=== PATIENT | female | born 1995 | race Two or more races ===

== ENCOUNTER 2021-05-29 03:05 | Emergency (ER) | payer OTHER ==
[~2021-05-29 03:05] MED LIST: IBUPROFEN800 MG PO; LODINE400 MG PO; PREDNISONE 20MG20 MG PO; PROAIR HFA8.5 GM INH; ROBAXIN750 MG PO; TESSALON PERLE100 M1 PO
[2021-05-29 04:56] LABS: BASOPHIL 0.5 % (0-2); EOSINOPHIL 1.6 % (0-5); HGB 12.2 g/dl (12.5-16.0); LYMPHOCYTE 26.2 % (15-48); MCH 27.4 pg (25.0-31.0); MCHC 32.1 g/dL (32.0-36.0); MCV 85.2 fL (78.0-100.0); MONOCYTE 6.3 % (0-12); MPV 11.1 fL (6.0-9.5); NEUTROPHIL 65.2 % (41-80); NRBC 0; PLT 258 K/uL (150-400); RBC 4.46 M/uL (4.20-5.40); RDW 14.8 % (11.5-14.0); WBC 10.5 K/uL (4.0-10.5)
[2021-05-29 05:10] LABS: BUN/CREAT RATIO (CALC) 12.3 RATIO; CREATININE 0.73 mg/dL (0.51-0.95); POTASSIUM 3.5 mmol/L (3.5-5.1)
[2021-05-29 05:24] LABS: BILIRUBIN NEGATIVE (NEGATIVE); BLOOD 2+ Ery/uL (NEGATIVE); CLARITY CLEAR (CLEAR); COLOR YELLOW (YELLOW); GLUCOSE (U) NORMAL (NORMAL); LEUKOCYTES NEGATIVE Leu/uL (NEGATIVE); NITRITE NEGATIVE (NEGATIVE); PROTEIN NEGATIVE (NEGATIVE); UROBILINOGEN 0.2 mg/dL (0.2-1.0)
[2021-05-29 05:28] LABS: BACTERIA TRACE; URINARY WBC RARE
== END 2021-05-29 07:42 | disposition home or self-care (01) ==
LOC: FER 03:05
PROVIDERS: Emergency Medicine Emergency Medical Services
DX: O20.0 Threatened abortion (principal); O99.330 Smoking (tobacco) complicating pregnancy, unspecified trimester; F17.210 Nicotine dependence, cigarettes, uncomplicated; Z3A.00 Weeks of gestation of pregnancy not specified; Z90.49 Acquired absence of other specified parts of digestive tract
CPT/HCPCS: 36415; 80048; 81001; 84702; 85025; 86900; 86901; 87210

== ENCOUNTER 2021-12-13 19:39 | Emergency (ER) | payer OTHER ==
[2021-12-13 21:17] LABS: BASOPHIL 0.4 % (0-2); EOSINOPHIL 0.4 % (0-5); HCT 32.7 % (37.0-47.0); LYMPHOCYTE 7.5 % (15-48); MCH 28.6 pg (25.0-31.0); MCHC 33.6 g/dL (32.0-36.0); MCV 85.2 fL (78.0-100.0); MONOCYTE 5.3 % (0-12); MPV 10.3 fL (6.0-9.5); NRBC 0; PLT 169 K/uL (150-400); RBC 3.84 M/uL (4.20-5.40); RDW 13.1 % (11.5-14.0); WBC 7.7 K/uL (4.0-10.5)
[2021-12-13 21:43] LABS: ALBUMIN 3.2 g/dL (3.4-5.0); BILIRUBIN - TOTAL 0.3 mg/dL (0.2-1.0); BUN/CREAT RATIO (CALC) 4.1 RATIO; CREATININE 0.49 mg/dL (0.51-0.95); FT4 (FREE T4) 0.8 ng/dL (0.76-1.46); GLOBULIN (CALCULATION) 4.1 g/dL; MAGNESIUM 1.4 mg/dL (1.8-2.4); POTASSIUM 3.1 mmol/L (3.5-5.1); TOTAL PROTEIN 7.3 g/dL (6.4-8.2)
[2021-12-13 22:06] LABS: CORONAVIRUS 2019 SARS-COV-2 NEGATIVE (NEGATIVE); INFLUENZA A NAA POSITIVE (NEGATIVE)
[2021-12-14] MEDS ORDERED: PREDNISONE 20MG20 MG PO (01:55)
[2021-12-14 02:37] LABS: BILIRUBIN NEGATIVE (NEGATIVE); BLOOD 2+ Ery/uL (NEGATIVE); GLUCOSE (U) NORMAL (NORMAL); LEUKOCYTES NEGATIVE Leu/uL (NEGATIVE); NITRITE NEGATIVE (NEGATIVE); PROTEIN NEGATIVE (NEGATIVE); SPECIFIC GRAVITY 1.015 (1.001-1.030)
[2021-12-14 02:42] LABS: CLARITY SLIGHTLY HAZY (CLEAR); COLOR STRAW (YELLOW)
[2021-12-14 02:44] LABS: BACTERIA TRACE; URINARY WBC RARE
== END 2021-12-14 02:32 | disposition home or self-care (01) ==
LOC: FER 19:39
PROVIDERS: Internal Medicine
DX: O99.513 Diseases of the respiratory system complicating pregnancy, third trimester (principal); J10.1 Influenza due to other identified influenza virus with other respiratory manifestations; J45.901 Unspecified asthma with (acute) exacerbation; O99.283 Endocrine, nutritional and metabolic diseases complicating pregnancy, third trimester; E87.6 Hypokalemia; O99.891 Other specified diseases and conditions complicating pregnancy; R00.0 Tachycardia, unspecified; R94.6 Abnormal results of thyroid function studies; Z87.891 Personal history of nicotine dependence; Z3A.34 34 weeks gestation of pregnancy; Z20.822 Contact with and (suspected) exposure to COVID-19
CPT/HCPCS: 36415; 71046; 80053; 81001; 83605; 83690; 83735; 84145; 84439; 84443; 85025; 87040; 94640; 94664; J1170; J2405; J2543; J3475; J7030; U0002

== ENCOUNTER 2022-01-21 14:07 | Day surgery (SDC) | payer OTHER ==
[2022-01-21 15:03] LABS: BASOPHIL 0.4 % (0-2); EOSINOPHIL 3.1 % (0-5); HCT 39.7 % (37.0-47.0); HGB 12.7 g/dl (12.5-16.0); LYMPHOCYTE 30.9 % (15-48); MCH 27.7 pg (25.0-31.0); MCV 86.5 fL (78.0-100.0); MONOCYTE 5.7 % (0-12); MPV 10.4 fL (6.0-9.5); NEUTROPHIL 59.6 % (41-80); NRBC 0; PLT 339 K/uL (150-400); RBC 4.59 M/uL (4.20-5.40); RDW 12.9 % (11.5-14.0); WBC 9.3 K/uL (4.0-10.5)
[2022-01-21 15:09] LABS: BILIRUBIN NEGATIVE (NEGATIVE); BLOOD 3+ Ery/uL (NEGATIVE); CLARITY CLEAR (CLEAR); COLOR YELLOW (YELLOW); GLUCOSE (U) NORMAL (NORMAL); LEUKOCYTES NEGATIVE Leu/uL (NEGATIVE); NITRITE NEGATIVE (NEGATIVE); PROTEIN NEGATIVE (NEGATIVE); UROBILINOGEN 0.2 mg/dL (0.2-1.0); pH 6.5 (5.0-9.0)
[2022-01-21 15:15] LABS: BUN/CREAT RATIO (CALC) 15.3 RATIO; CREATININE 0.72 mg/dL (0.51-0.95); POTASSIUM 3.8 mmol/L (3.5-5.1)
[2022-01-21 15:18] LABS: BACTERIA 1+; MUCOUS LARGE
[2022-01-22] MEDS ORDERED: PERCOCET 5-3251 EACH PO (18:30)
== END 2022-01-22 20:30 | disposition home or self-care (01) ==
LOC: FER 14:07 → FMS 19:10 → FER 19:10 → FAS 20:39 → FMS 20:39 → FER 20:39 → FMS 01-22 20:30 → FAS 01-22 20:30
PROVIDERS: Emergency Medicine
DX: K35.33 Acute appendicitis with perforation, localized peritonitis, and gangrene, with abscess (principal); F17.210 Nicotine dependence, cigarettes, uncomplicated; Z20.822 Contact with and (suspected) exposure to COVID-19
CPT/HCPCS: 36415; 71275; 80048; 81001; 84145; 85025; 85379; 87088; 94010; G0378; J1100; J1170; J1885; J2250; J2405; J2543; J2704; J2710; J3010; J7030; J7120; Q9967; U0002